=== PATIENT | female | born 1995 | race Hispanic/Latino ===

== ENCOUNTER 2018-11-07 19:42 | Emergency (ER) | payer MEDICAID ==
[2018-11-07] MEDS ORDERED: KETOROLAC TROMETHAMINE 30MG/ML ONE (20:17)
== END 2018-11-07 20:41 | disposition home or self-care (01) ==
LOC: EDH 19:42
DX: S62.316A Displaced fracture of base of fifth metacarpal bone, right hand, initial encounter for closed fracture (principal); W22.8XXA Striking against or struck by other objects, initial encounter; Y93.89 Activity, other specified; Y92.89 Other specified places as the place of occurrence of the external cause; Y99.8 Other external cause status
CPT/HCPCS: 29125; 73130; 96372; 99284; J1885

== ENCOUNTER 2019-09-17 19:39 | Emergency (ER) | payer MEDICAID ==
[2019-09-17] MEDS ORDERED: AMOXICILLIN/POTASSIUM CLAV 875-125 TABLET PO ONE (19:52)
[2019-09-17] MEDS ORDERED: KETOROLAC TROMETHAMINE 60 MG/2 ML VIAL ONE (19:52)
[2019-09-17] MEDS ORDERED: TETANUS/DIPHTHERIA TOXOID [ADULT] 0.5 ML VIAL IM ONE (19:54)
== END 2019-09-17 20:34 | disposition home or self-care (01) ==
LOC: EDH 19:39
DX: S61.431A Puncture wound without foreign body of right hand, initial encounter (principal); W18.39XA Other fall on same level, initial encounter; Y93.89 Activity, other specified; Y92.89 Other specified places as the place of occurrence of the external cause; Y99.8 Other external cause status
CPT/HCPCS: 73130; 90471; 90714; 96372; 99284; J1885

== ENCOUNTER 2020-11-07 22:59 | Emergency (ER) | payer MEDICAID | END 2020-11-08 00:16 | disposition left against medical advice (07) | LOC: EDH 22:59 | DX: R10.9 Unspecified abdominal pain (principal); Z53.21 Procedure and treatment not carried out due to patient leaving prior to being seen by health care provider ==

== ENCOUNTER 2021-09-18 17:55 | Emergency (ER) | payer MEDICAID ==
[~2021-09-18] VITALS: Ht 162.6 cm; Wt 72.6 kg
[2021-09-18 18:36] LABS: BASOPHILS % (AUTO) 0.6 % (0.0-5.0); HEMATOCRIT 41.1 % (36-48); LYMPHOCYTES % (AUTO) 23.5 % (21.0-51.0); MEAN CORPUSCULAR HEMOGLOBIN 31.1 pg (27.0-33.0); MEAN CORPUSCULAR HGB CONC 33.3 g/dL (32.0-36.0); MEAN CORPUSCULAR VOLUME 93.2 fL (79-99); MONOCYTES % (AUTO) 8.1 % (3.0-13.0); NEUTROPHILS % (AUTO) 66.5 % (40.0-77.0); PLATELET COUNT (AUTO) 286 K/uL (130-400); RED BLOOD CELL COUNT(AUTO) 4.41 MIL/uL (4.00-5.50); RED CELL DISTRIBUTION WIDTH 12.1 % (11.0-15.5)
[2021-09-18 18:40] LABS: APPEARANCE,URINE Cloudy (CLEAR); BILIRUBIN,URINE Negative (NEGATIVE); COLOR,URINE Yellow (YELLOW); GLUCOSE, URINE (UA) Negative (NEGATIVE); KETONES,URINE Trace mg/dL (NEGATIVE); LEUKOCYTE ESTERASE ,URINE Moderate (NEGATIVE); NITRATE,URINE Negative (NEGATIVE); OCCULT BLOOD,URINE Negative (NEGATIVE); PH,URINE 6.5 (5.0-8.0); PROTEIN,URINE Negative (NEGATIVE)
[2021-09-18 18:42] LABS: HCG,QUAL RESULT NEGATIVE (NEGATIVE)
[2021-09-18 18:59] LABS: BACTERIA,URINE Few /HPF (None Seen); RBC,URINE 0-1 /HPF (0-1); SQUAMOUS EPITHELIAL CELL,UR Moderate /HPF (0-2)
[2021-09-18] MEDS ORDERED: 0.9%NACL 1000ML 1,000 ML IV ONE (19:00)
[2021-09-18] MEDS ORDERED: KETOROLAC 15MG/ML VIAL (15MG/ML) IV ONE (19:00)
[2021-09-18 19:01] LABS: MUCUS,URINE Rare LPF (None Seen)
[2021-09-18 19:05] LABS: ALBUMIN 4.3 g/dL (3.5-5.0); BILIRUBIN,TOTAL 0.3 mg/dL (0.2-1.0); CREATININE 0.9 mg/dL (0.5-1.5); POTASSIUM 3.3 mmol/L (3.5-5.1)
[2021-09-18 20:34] VITALS: BP 125/73
[2021-09-18] MEDS ORDERED: IBUP-2070 PO (20:35)
[2021-09-18] MEDS ORDERED: CEPH500B PO (20:35)
== END 2021-09-18 20:57 | disposition home or self-care (01) ==
LOC: EDH 17:55
DX: N20.0 Calculus of kidney (principal); N39.0 Urinary tract infection, site not specified
CPT/HCPCS: 36415; 74176; 80053; 81001; 81025; 82550; 85025; 87088; 96361; 96374; 99284; J1885; J7030

== ENCOUNTER 2022-08-31 20:46 | Emergency (ER) | payer MEDICAID ==
[~2022-08-31] VITALS: Ht 160 cm; Wt 69.4 kg
[~2022-08-31 20:46] MED LIST: CEPH500B PO; IBUP-2070 PO
[2022-08-31] MEDS ORDERED: AMOX500C2 PO (21:06)
[2022-08-31] MEDS ORDERED: DEXAMETHASONE SOD PHOSPHATE 4 MG/ML 1ML VIAL IM ONE (21:30)
[2022-08-31] MEDS ORDERED: CEFTRIAXONE 1G VIAL IM ONE (21:30)
[2022-08-31 21:41] VITALS: BP 128/65
== END 2022-08-31 21:43 | disposition home or self-care (01) ==
LOC: EDH 20:46
DX: H66.92 Otitis media, unspecified, left ear (principal)
CPT/HCPCS: 99284; 96372 ×2; J1100; J0696

== ENCOUNTER → 2022-09-25 | Emergency (ER) | payer MEDICAID ==
[~2022-09-25] VITALS: Ht 160 cm; Wt 68.9 kg
[~2022-09-25] MED LIST changes: +AMOX500C2 PO
[2022-09-25 10:49] VITALS: BP 136/96
[2022-09-25 11:31] LABS: APPEARANCE,URINE CLEAR (CLEAR); BILIRUBIN,URINE NEGATIVE (NEGATIVE); COLOR,URINE LIGHT-YELLOW (YELLOW); GLUCOSE, URINE (UA) NEGATIVE (NEGATIVE); HCG,QUALITATIVE URINE NEGATIVE (NEGATIVE); KETONES,URINE NEGATIVE (NEGATIVE); LEUKOCYTE ESTERASE ,URINE 25 Leu/uL (NEGATIVE); NITRATE,URINE NEGATIVE (NEGATIVE); OCCULT BLOOD,URINE LARGE (NEGATIVE); PROTEIN,URINE 10 mg/dL (NEGATIVE); UROBILINOGEN,URINE 0.2 mg/dL (0.2-1.0)
[2022-09-25 11:33] LABS: BACTERIA,URINE RARE /HPF (None Seen); MUCUS,URINE MOD LPF (None Seen); RBC,URINE 51-100 /HPF (0-1); SQUAMOUS EPITHELIAL CELL,UR RARE /HPF (0-2)
== END ==
LOC: EDH 10:45
DX: R10.2 Pelvic and perineal pain (principal); Z53.21 Procedure and treatment not carried out due to patient leaving prior to being seen by health care provider
CPT/HCPCS: 81001; 81025; 99281

== ENCOUNTER 2023-04-26 10:49 | Emergency (ER) | payer MEDICAID ==
[~2023-04-26] VITALS: Ht 160 cm; Wt 69.4 kg
[2023-04-26 10:51] VITALS: BP 112/68; PULSE 104; RESP 18
[2023-04-26 11:15] LABS: RAPID GROUP A STREP negative (NEGATIVE)
[2023-04-26 11:19] LABS: SARS-CoV-2, RNA, NAAT NEGATIVE SARS CoV-2 (NEGATIVE)
[2023-04-26 11:24] LABS: INFLUENZA TYPE A Negative For Type A (NEGATIVE); INFLUENZA TYPE B Negative For Type B (NEGATIVE)
[2023-04-26] MEDS ORDERED: PRED20TA3 PO (11:59)
[2023-04-26] MEDS ORDERED: IBUP-2070 PO (11:59)
== END 2023-04-26 12:17 | disposition home or self-care (01) ==
LOC: EDH 10:49
DX: J02.9 Acute pharyngitis, unspecified (principal); Z20.822 Contact with and (suspected) exposure to COVID-19
CPT/HCPCS: 87635; 87804; 87880

== ENCOUNTER 2023-11-09 19:07 | Emergency (ER) | payer MEDICAID ==
[~2023-11-09] VITALS: Ht 160 cm; Wt 63.5 kg
[~2023-11-09 19:07] MED LIST changes: +PRED20TA3 PO
[2023-11-09 19:51] LABS: BASOPHILS # (AUTO) 0.05 K/uL (0.00-0.20); BASOPHILS % (AUTO) 0.6 % (0.0-5.0); EOSINOPHILS # (AUTO) 0.07 K/uL (0.00-0.70); EOSINOPHILS % (AUTO) 0.8 % (0.0-8.0); HEMATOCRIT 39.8 % (36-48); IMMATURE GRANULOCYTE ABSOLUTE 0.03 K/uL (0-1); LYMPHOCYTES # (AUTO) 1.8 K/uL (1.0-4.8); LYMPHOCYTES % (AUTO) 20.5 % (21.0-51.0); MEAN CORPUSCULAR HEMOGLOBIN 31.7 pg (27.0-33.0); MEAN CORPUSCULAR HGB CONC 33.4 g/dL (32.0-36.0); MONOCYTES # (AUTO) 0.5 K/uL (0.1-1.0); MONOCYTES % (AUTO) 5.5 % (3.0-13.0); NEUTROPHILS # (AUTO) 6.3 K/uL (1.8-7.7); NEUTROPHILS % (AUTO) 72.3 % (40.0-77.0); PLATELET COUNT (AUTO) 239 K/uL (130-400); RED BLOOD CELL COUNT(AUTO) 4.19 MIL/uL (4.00-5.50); RED CELL DISTRIBUTION WIDTH 12.5 % (11.0-15.5); WHITE BLOOD COUNT (AUTO) 8.8 K/uL (4.8-10.8)
[2023-11-09 19:58] LABS: APPEARANCE,URINE CLOUDY (CLEAR); BILIRUBIN,URINE NEGATIVE (NEGATIVE); COLOR,URINE LIGHT-YELLOW (YELLOW); GLUCOSE, URINE (UA) NEGATIVE (NEGATIVE); KETONES,URINE NEGATIVE (NEGATIVE); LEUKOCYTE ESTERASE ,URINE NEGATIVE Leu/uL (NEGATIVE); NITRATE,URINE NEGATIVE (NEGATIVE); OCCULT BLOOD,URINE NEGATIVE (NEGATIVE); PROTEIN,URINE NEGATIVE (NEGATIVE); UROBILINOGEN,URINE 0.2 mg/dL (0.2-1.0)
[2023-11-09] MEDS ORDERED: acetaMINOPHEN 500 MG TABLET PO ONE (20:00)
[2023-11-09 20:02] LABS: ADD UA MICROSCOPIC YES
[2023-11-09 20:04] LABS: BACTERIA,URINE FEW /HPF (None Seen); MUCUS,URINE RARE LPF (None Seen); OTHER CASTS, URINE 2 /LPF (None Seen); SQUAMOUS EPITHELIAL CELL,UR RARE /HPF (0-2); UNCLASSIFIED CRYSTAL 2 /HPF (None Seen); YEAST,URINE BUDDING MOD /HPF (None Seen)
[2023-11-09] MEDS: acetaMINOPHEN 500 MG TABLET ONE (20:04)
[2023-11-09 20:06] LABS: AMPHET/METH SCREEN,URINE NEGATIVE (NEGATIVE); BARBITURATE SCREEN, URINE NEGATIVE (NEGATIVE); BENZODIAZEPINES SCREEN,URINE NEGATIVE (NEGATIVE); CANNABINOID SCREEN,URINE POSITIVE (NEGATIVE); COCAINE SCREEN,URINE NEGATIVE (NEGATIVE); OPIATE SCREEN,URINE NEGATIVE (NEGATIVE); PHENCYCLIDINE SCREEN,URINE NEGATIVE (NEGATIVE)
[2023-11-09 20:06] LABS: CREATININE 0.8 mg/dL (0.5-1.0); POTASSIUM 4.4 mmol/L (3.5-5.1)
[2023-11-09] MEDS: KETOROLAC 30MG VIAL (30MG/ML) IM ONE (20:07)
[2023-11-09 20:44] VITALS: BP 112/72; PULSE 70; RESP 16; O2SAT 100
== END 2023-11-09 20:53 | disposition home or self-care (01) ==
LOC: EDH 19:07
DX: S80.02XA Contusion of left knee, initial encounter (principal); R55 Syncope and collapse; Z79.899 Other long term (current) drug therapy; X58.XXXA Exposure to other specified factors, initial encounter; Y93.89 Activity, other specified; Y92.89 Other specified places as the place of occurrence of the external cause; Y99.8 Other external cause status
CPT/HCPCS: 99285; 84484; 80048; 80305; 84703; 85025; 36415; 73562; 96372; 93005; 81001; J1885

== ENCOUNTER 2024-01-30 14:59 | Emergency (ER) | payer MEDICAID ==
[~2024-01-30] VITALS: Ht 160 cm; Wt 64.4 kg
[2024-01-30 17:31] LABS: APPEARANCE,URINE CLEAR (CLEAR); BILIRUBIN,URINE NEGATIVE (NEGATIVE); COLOR,URINE LIGHT-YELLOW (YELLOW); GLUCOSE, URINE (UA) NEGATIVE (NEGATIVE); KETONES,URINE NEGATIVE (NEGATIVE); LEUKOCYTE ESTERASE ,URINE NEGATIVE Leu/uL (NEGATIVE); NITRATE,URINE NEGATIVE (NEGATIVE); OCCULT BLOOD,URINE NEGATIVE (NEGATIVE); PROTEIN,URINE NEGATIVE (NEGATIVE); UROBILINOGEN,URINE 0.2 mg/dL (0.2-1.0)
[2024-01-30 17:32] LABS: ADD UA MICROSCOPIC NO
[2024-01-30 17:45] LABS: RAPID GROUP A STREP negative (NEGATIVE); SARS-CoV-2, RNA, NAAT NEGATIVE SARS CoV-2 (NEGATIVE)
[2024-01-30 17:53] LABS: INFLUENZA TYPE A Negative For Type A (NEGATIVE); INFLUENZA TYPE B Negative For Type B (NEGATIVE)
--- NOTE | 2024-01-30 18:03 | ERN ---
General Chief Complaint: Sore Throat Stated Complaint: SORE THROAT Time Seen by MD: 15:10 Time Seen by Midlevel: 15:10 Source: patient History of Present Illness Initial Comments Patient is a 28-year-old female with no significant past medical history presenting to the ER for evaluation of sore throat along with what she calls a raspy voice. She states all of this started after being outside for prolonged period of time watching a boxing fight on TV. She states she was drinking and celebrating yelling. The next day she woke up with a raspy voice and pain. Denies any other symptoms at this time. Allergies: Coded Allergies: No Known Drug Allergies (Unverified Allergy, Unknown, 11/07/18) Home Meds Active Scripts Ketorolac Tromethamine (Ketorolac Tromethamine) 10 Mg Tablet, 1 TAB PO TID for pain for 5 Days, #15 TAB 0 Refills Prov:KATHERYN ARGUELLO PA 01/30/24 Methylprednisolone (Medrol) 4 Mg Tab.ds.pk, 1 TAB PO AD for 6 Days, #21 TAB 0 Refills 6 on day 1 then reduce by one tablet daily until gone Prov:KATHERYN ARGUELLO PA 01/30/24 Ibuprofen (Ibuprofen) 600 Mg Tablet, 600 MG PO Q6H PRN for PAIN, #30 TAB Prov:ARAVIND ANGELA DINING ROOM CAPTAIN 04/26/23 Prednisone (Prednisone) 20 Mg Tablet, 2 TAB PO DAILY for 5 Days, #10 TAB 0 Refills Prov:ARAVIND ANGELA DINING ROOM CAPTAIN 04/26/23 Amoxicillin (Amoxicillin) 500 Mg Capsule, 500 MG PO BID for 7 Days, #14 CAP 0 Refills Prov:YON PATEL SENIOR MEDICAL WRITER 08/31/22 Ibuprofen (Ibuprofen) 600 Mg Tablet, 600 MG PO Q6H PRN for PAIN, #15 TAB Prov:MELO CALVO DINING ROOM CAPTAIN 09/18/21 Cephalexin Monohydrate (Keflex) 500 Mg Cap, 500 MG PO QID for 7 Days, #28 CAP Prov:MELO CALVO DINING ROOM CAPTAIN 09/18/21 Past Medical History Past Medical History: No Pertinent History Past Surgical History: None Family History Family History: Negative Social History Social History: Negative, Lives with family Female( History) History: Not Applicable ROS Dictation CONSTITUTIONAL: Negative except for HPI HEAD/FACE: Negative except for HPI EENT: Negative except for HPI RESPIRATORY: Negative except for HPI GASTROINTESTINAL/ABDOMINAL: Negative except for HPI GENITOURINARY: Negative except for HPI MUSCULOSKELETAL: Negative except for HPI INTEGUMENTARY: Negative except for HPI NEUROLOGICAL/PSYCH: Negative except for HPI HEMATOLOGIC/LYMPHATIC: Negative except for HPI All Systems Negative, Except as noted above. 13 point review of systems assessed and all negative except for above. Constitutional: (+) chills Physical Exam Physical Exam Dictation Vital Signs reviewed General Appearance: Alert, oriented x 3, no acute distress, well developed, nourished. Head and Face: non-traumatic. Eyes: PERRL, pink conjunctivas, eyelid no trauma, anterior chamber with arcus senilis. Ears: Pinnas intact and no signs of trauma or erythema ear canals clear and no discharge TM no erythema Nose: No discharge, no bleeding. Oropharynx erythema to the posterior oropharynx pharynx clear,no erythema, tonsils no exudates, no abscesses noted, mucous membrane moist Neck: Supple, non-tender, no thyromegaly, no masses, no JVD, no bruits Breast:Deferred Chest:No tenderness, no crepitus, no paradoxical movement, no retractions Lungs:Clear, well-ventilated, symmetric, no rales, no wheezing, no rhonchi, no stridor, good breath sounds bilaterally Heart: Regular rate, regular rhythm, no murmur, no gallops Vascular: no peripheral edema, Abdomen: Soft, positive bowel sounds, nondistended, no guarding, nontender, no rebound, no masses no hepatomegaly, no splenomegaly, no Kaur's sign, no hernias. Rectal: Deferred Genital: Deferred Neurological: Normal speech, motor function intact, sensory function intact Musculoskeletal: Neck nontender, full range of motion, back nontender, full range of motion, Extremities: nontender, full range of motion Skin: Color pink, dry, no turgor, no rash, no lacerations, no abrasions, no contusions. Lymphatic: Deferred Results Laboratory and Microbiology Lab and Micro Result Laboratory Tests Test 01/30/24 17:09 01/30/24 17:30 Urine Color LIGHT-YELLOW (YELLOW) Urine Appearance CLEAR (CLEAR) Urine pH 7.0 (5.0-8.0) Urine Specific [place] 1.017 (1.001-1.031) Urine Protein NEGATIVE mg/dL (NEGATIVE) Urine Glucose (UA) NEGATIVE mg/dL (NEGATIVE) Urine Ketones NEGATIVE mg/dL (NEGATIVE) Urine Occult Blood NEGATIVE (NEGATIVE) Urine Nitrate NEGATIVE (NEGATIVE) Urine Bilirubin NEGATIVE mg/dL (NEGATIVE) Urine Urobilinogen 0.2 mg/dL (0.2-1.0) Urine Leukocyte Esterase NEGATIVE Kishore/uL Influenza Type A Antigen Negative For Type A Influenza Type B Antigen Negative For Type B SARS-CoV-2, RNA, NAAT NEGATIVE SARS CoV-2 Group A Streptococcus Rapid negative (NEGATIVE) Labs Reviewed?: Yes MDM MDM: Patient is a 28-year-old female with no significant past medical history presenting to the ER for evaluation of sore throat along with what she calls a raspy voice. She states all of this started after being outside for prolonged period of time watching a boxing fight on TV. She states she was drinking and celebrating yelling. The next day she woke up with a raspy voice and pain. Denies any other symptoms at this time. On physical examination patient has mild erythema to the posterior oropharynx but no tonsillar exudates. There was no signs of peritonsillar abscess. Uvula is midline. Patient is afebrile and nontoxic appearing. Her symptoms are consistent with laryngitis. She will be sent home with supportive management Differential diagnosis: Strep, viral syndrome, upper respiratory infection, laryngitis There are no social concerns with this patient. Prescription drug management Prescriptions will include: Medrol pack and Toradol Medical management and examination interpretation discussions were had by me with other qualified healthcare professionals as indicated for the patient's care. ED Course Orders Procedure Category Date Status Time Covid Rna Naat LAB 01/30/24 Complete 15:28 Influenza Type A & B, LAB 01/30/24 Complete Rapid 15:28 Rapid (Group A Strep) LAB 01/30/24 Complete 15:28 Urinalysis Profile LAB 01/30/24 Complete 17:07 Ketorolac PHA 01/30/24 Complete Tromethamine 15mg/Ml 18:30 Current Medications Medications (Trade) Dose Ordered Sig/Karan Route PRN Reason Start Time Stop Time Status Last Admin Dose Admin Ketorolac Tromethamine (toRADol) 15 mg ONCE ONCE IM 01/30/24 18:30 01/30/24 18:33 DC Vital Signs Date Time Temp Pulse Resp B/P (MAP) Pulse Ox O2 Delivery O2 Flow Rate FiO2 01/30/24 18:21 98.4 69 17 128/81 100 Room Air* 0 21 01/30/24 15:22 98.8 90 16 120/57 99 Room Air 0 DX & DISP Disposition: Discharge Departure Impression: Primary Impression: Laryngitis Condition: Stable Scripts Ketorolac Tromethamine (Ketorolac Tromethamine) 10 Mg Tablet 1 TAB PO TID for pain for 5 Days, #15 TAB 0 Refills Prov: KATHERYN ARGUELLO 01/30/24 Methylprednisolone (Medrol) 4 Mg Tab.ds.pk 1 TAB PO AD for 6 Days, #21 TAB 0 Refills 6 on day 1 then reduce by one tablet daily until gone Prov: KATHERYN ARGUELLO 01/30/24 Additional Instructions: You have tested negative for influenza a, influenza B, COVID 19, and strep. Your symptoms are consistent with laryngitis. This is self-limiting and should resolve within a couple of days. Follow up with your primary care doctor in 2-3 days for repeat evaluation. Return to the ER for any new or worsening symptoms Referrals: ROSY ARGUELLO MD (PCP) Time of Disposition: 18:01 I have reviewed the case, and I agree with, Diagnosis and Plan I performed the substantive portion of the visit. I have reviewed and personally made and approve the management plan that is documented in the note by myself or the JULIAN. I acknowledge for responsibility for the patient's management plan. KATHERYN ARGUELLO Jan 30, 2024 18:03 JONE SHAFFER MD Feb 02, 2024 16:29
[2024-01-30] MEDS ORDERED: METH4TAB3 PO (18:15)
[2024-01-30] MEDS ORDERED: KETO10TA2 PO (18:19)
[2024-01-30 18:21] VITALS: BP 128/81; PULSE 69; RESP 17; TEMP 98.4; O2SAT 100
[2024-01-30] MEDS ORDERED: ketOROlac 15MG/ML VIAL (15MG/ML) IM ONE (18:30)
--- NOTE | 2024-01-30 18:37 | NUR ---
PT REFUSE TO WAIT FOR MEDICATION AND NOTIFIED KATHERYN ARGUELLO
== END 2024-01-30 18:38 | disposition home or self-care (01) ==
LOC: EDH 14:59
DX: J04.0 Acute laryngitis (principal); Z79.52 Long term (current) use of systemic steroids; Z20.822 Contact with and (suspected) exposure to COVID-19
CPT/HCPCS: 81003; 87635; 87804; 87880; 99283

== ENCOUNTER → 2024-03-09 | Outpatient (CLI) | payer MEDICAID ==
[~2024-03-09] MED LIST changes: +KETO10TA2 PO; +METH4TAB3 PO
== END | disposition home or self-care (01) ==
LOC: SHCH 15:24
PROVIDERS: ATTEND Internal Medicine Cardiovascular Disease
DX: R00.2 Palpitations (principal)
CPT/HCPCS: 93306